=== PATIENT | male | born 1955 | race Caucasian/White ===

== ENCOUNTER 2016-05-09 07:37 | Emergency (ER) | payer OTHER ==
[~2016-05-09] VITALS: Ht 175.3 cm; Wt 84.2 kg
[~2016-05-09 07:37] MED LIST: Aspirin E.C. PO; Voltaren PO; Zestril,Prinivil PO
[2016-05-09 08:33] LABS: HEMATOCRIT 44.2 % (38.0-50.0); MCH 29.2 PG (29.0-34.0); MCHC 32.4 G/DL (30.0-36.0); MCV 90.4 FL (86-99); RBC DIS.WIDTH-SD 43.1 % (39-53); RED BLOOD COUNT 4.89 M/uL (4.00-5.50); WHITE BLOOD COUNT 8.9 K/uL (4.1-10.2)
[2016-05-09 08:44] LABS: CHLORIDE 103 mEq/L (99-109); POTASSIUM 3.3 mEq/L (3.7-5.4); SODIUM 138 mEq/L (136-147)
[2016-05-09 08:46] LABS: GLUCOSE 122 mg/dL (70-99)
[2016-05-09 08:47] LABS: ANION GAP 8 MEQ/L (2-14)
[2016-05-09 08:48] LABS: TOTAL BILIRUBIN 1.4 mg/dL (0.0-1.0)
[2016-05-09 08:49] LABS: ALKALINE PHOSPHATASE 86 IU/L (3-129)
[2016-05-09 08:50] LABS: GFR ESTIMATE (CALCULATED) > 59 mL/min/
[2016-05-09 08:51] LABS: DIRECT BILIRUBIN 0.5 mg/dL (0.0-0.3); UREA NITROGEN (BUN) 15 mg/dL (9-23)
[2016-05-09 08:53] LABS: TROP-I INTERPRETATION NEGATIVE; TROPONIN-I 0.06 ng/mL (0.0-0.30)
[2016-05-09 09:28] LABS: MEAN PLAT.VOLUME 11.3 uM^3 (9.0-12.4); PLATELET COUNT 204 K/uL (156-360)
[2016-05-09 11:09] LABS: ADD MIUA? NO; BILIRUBIN NEGATIVE; BLOOD NEGATIVE; COLOR STRAW ((YELLOW)); GLUCOSE (STRIP) NEGATIVE; KETONES NEGATIVE; LEUKOCYTES NEGATIVE; NITRITE NEGATIVE; PROTEIN (STRIP) 30; SPECIFIC GRAVITY 1.006 (1.000-1.030); UCUL ADDED? NO; UROBILINOGEN 0.2 MG/DL (0.2-1.0)
[2016-05-09 11:29] LABS: TROP-I INTERPRETATION NEGATIVE; TROPONIN-I 0.07 ng/mL (0.0-0.30)
[2016-05-09] MEDS ORDERED: PLAVIX75 MG PO (11:42)
[2016-05-09] MEDS ORDERED: LIPITOR80 MG PO (11:42)
[2016-05-09] MEDS ORDERED: LOPRESSOR50 MG PO (11:42)
[2016-05-09] MEDS ORDERED: VITAMIN D31000 UNI2 PO (11:42)
[2016-05-09] MEDS ORDERED: NITROSTAT0.4 MG SL (11:43)
[2016-05-09] MEDS ORDERED: KLOR-CON M2020 MEQ PO (11:43)
[2016-05-09] MEDS ORDERED: SEROQUEL50 MG PO (11:44)
[2016-05-09] MEDS ORDERED: NORVASC5 MG PO (11:45)
[2016-05-09] MEDS ORDERED: SEROQUEL12.5 MG PO (11:45)
[2016-05-09] MEDS ORDERED: ULTRAM50 MG PO (11:46)
[2016-05-09] MEDS ORDERED: OMEPRAZOLE20 MG PO (12:20)
[2016-05-09] MEDS ORDERED: ZANTAC150 MG PO (12:20)
[2016-05-09 12:32] VITALS: BP 159/99
== END 2016-05-09 13:09 | disposition home or self-care (01) ==
LOC: EME 07:37 → EDOF 10:39 → EME 10:39
PROVIDERS: Nurse Practitioner Family
DX: R07.9 Chest pain, unspecified (principal); R10.13 Epigastric pain; I10 Essential (primary) hypertension; R39.11 Hesitancy of micturition; I25.2 Old myocardial infarction; Z95.5 Presence of coronary angioplasty implant and graft; Z87.438 Personal history of other diseases of male genital organs; E78.5 Hyperlipidemia, unspecified; Z87.891 Personal history of nicotine dependence
CPT/HCPCS: 71020; 76705; 80048; 80076; 81003; 84484; 85027; 93005; 99281; 99285; J0360